=== PATIENT | male | born 1950 | race Caucasian/White ===

== ENCOUNTER 2020-05-20 13:50 | Emergency (ER) | payer MEDICARE, BC ==
--- NOTE | 2020-05-20 15:17 | EDM.PDOC ---
ED HPI GENERAL MEDICAL PROBLEM - General Chief Complaint: Cardiovascular Problem Stated Complaint: DEFIBRILLATOR ISSUES Time Seen by Provider: 05/20/20 14:25 Source of Information: Reports: Patient, RN Notes Reviewed History Limitations: Reports: No Limitations - History of Present Illness INITIAL COMMENTS - FREE TEXT/NARRATIVE: Patient is a 70-year-old male who presents to the ED for the evaluation of his defibrillator going off. Patient states he was on stage at [employer] yesterday around 11 AM, when he felt his pacemaker shocked him, he states after this he became slightly dizzy and lightheaded but he did not pass out. Patient notes that he has had shocks like this in the past. He states that he did get a call from his doctor, they were going to get a hold of [employer], and that that he was directed to come to the ER for evaluation. Patient is not complaining of any symptoms today, no chest pain, no shortness of breath. His pacemaker was interrogated at today's visit, he does have 4 months battery life remaining, so they wanted us to be aware of this. He had an episode of V. tach yesterday, that was treated with pacing attempts x2, which was unsuccessful and he was shocked with 35 J. He has had 8 nonsustained V. tach episodes most recent on 15 May 2020, 11 SVT episodes most recent on 20 May 2020, and apparently his device measures fluid levels, and states that he has been accumulating fluid since about March 31. 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 - Related Data Allergies Allergy/AdvReac Type Severity Reaction Status Date / Time spironolactone Allergy Rash Verified 05/20/20 15:40 Home Meds: Home Meds Eplerenone [Inspra] 25 mg PO DAILY 05/20/20 [History] Ethacrynic Acid 25 mg PO DAILY 05/20/20 [History] Lansoprazole [Prevacid] 30 mg PO DAILY 05/20/20 [History] Levothyroxine 75 mcg PO DAILY 05/20/20 [History] Losartan [Cozaar] 100 mg PO DAILY 05/20/20 [History] Potassium Chloride [Klor-Con M20] 20 meq PO DAILY 05/20/20 [History] Sildenafil [Revatio] 20 mg PO DAILY 05/20/20 [History] Tamsulosin [Flomax] 0.4 mg PO DAILY 05/20/20 [History] atorvaSTATin [Lipitor] 80 mg PO DAILY 05/20/20 [History] carvediloL [Carvedilol] 3.125 mg PO DAILY 05/20/20 [History] metOLazone [Metolazone] 2.5 mg PO DAILY 05/20/20 [History] Past Medical History Cardiovascular History: Reports: Arrhythmia, Heart Failure, High Cholesterol, Hypertension, [place] Respiratory History: Reports: Asthma, Pneumonia, Recurrent Gastrointestinal History: Reports: GERD Musculoskeletal History: Reports: Arthritis, Osteoarthritis Hematologic History: Reports: Anemia Oncologic (Cancer) History: Reports: Renal, Other (See Below) Other Oncologic History: right kidney cancer with ablation; throat cancer with chemo radiation and surgery - Past Surgical History Cardiovascular Surgical History: Reports: AICD Social & Family History - Tobacco Use Smoking Status *Q: Never Smoker - Caffeine Use Caffeine Use: Reports: Coffee, Soda - Recreational Drug Use Recreational Drug Use: No ED ROS GENERAL - Review of Systems Review Of Systems: Comprehensive ROS is negative, except as noted in HPI. ED EXAM, GENERAL - Physical Exam Exam: See Below Exam Limited By: No Limitations General Appearance: Alert, WD/WN, No Apparent Distress Respiratory/Chest: No Respiratory Distress, Lungs Clear, Normal Breath Sounds, No Accessory Muscle Use, Chest Non-Tender Cardiovascular: Normal Peripheral Pulses, Regular Rate, Rhythm, No Edema, No Murmur Peripheral Pulses: 3+: Radial (L), Radial (R) Extremities: Normal Inspection, Normal Capillary Refill Neurological: Alert, Oriented, Normal Cognition, No Motor/Sensory Deficits Psychiatric: Normal Affect, Normal Mood Skin Exam: Warm, Dry, Intact, Normal Color, No Rash EKG INTERPRETATION EKG Date: 05/20/20 Time: 15:46 Rhythm: Other (AV dual paced rhythm) Rate (Beats/Min): 60 Comparison: NA - No Prior EKG EKG Interpretation Comments: Atrial ventricular dual paced rhythm. No obvious signs of ST changes or ischem ia. Reviewed by myself and Dr. Taylor. Course - Vital Signs Last Recorded V/S: Last Vital Signs Temp 98.4 F 05/20/20 14:08 Pulse 63 05/20/20 14:08 Resp 20 05/20/20 14:08 BP 133/76 05/20/20 14:08 Pulse Ox 97 05/20/20 14:08 - Orders/Labs/Meds Orders: Active Orders 24 hr Category Date Time Status EKG Documentation Completion [RC] STAT Care 05/20/20 15:24 Ordered Labs: Laboratory Tests 05/20/20 05/20/20 05/20/20 Range/Units 15:11 15:11 15:11 WBC 5.70 (4.23-9.07) K/mm3 RBC 3.84 L (4.63-6.08) M/mm3 Hgb 11.6 L (13.7-17.5) gm/dl Hct 36.3 L (40.1-51.0) % MCV 94.5 H (79.0-92.2) fl MCH 30.2 (25.7-32.2) pg MCHC 32.0 L (32.2-35.5) g/dl RDW Std Deviation 44.8 H (35.1-43.9) fL Plt Count 132 L (163-337) K/mm3 MPV 8.4 L (9.4-12.3) fl Neut % (Auto) 69.1 H (34.0-67.9) % Lymph % (Auto) 18.1 L (21.8-53.1) % [place] % (Auto) 10.0 (5.3-12.2) % Eos % (Auto) 1.9 (0.8-7.0) Baso % (Auto) 0.7 (0.1-1.2) % Neut # (Auto) 3.94 (1.78-5.38) K/mm3 Lymph # (Auto) 1.03 L (1.32-3.57) K/mm3 [place] # (Auto) 0.57 (0.30-0.82) K/mm3 Eos # (Auto) 0.11 (0.04-0.54) K/mm3 Baso # (Auto) 0.04 (0.01-0.08) K/mm3 Sodium 144 (136-145) mEq/L Potassium 4.3 (3.5-5.1) mEq/L Chloride 109 H (98-107) mEq/L Carbon Dioxide 26 (21-32) mEq/L Anion Gap 13.3 (5-15) BUN 22 H (7-18) mg/dL Creatinine 1.1 (0.7-1.3) mg/dL Est Cr Clr Drug Dosing 70.62 mL/min Estimated GFR (MDRD) > 60 (>60) mL/min BUN/Creatinine Ratio 20.0 H (14-18) Glucose 102 (80-115) mg/dL Calcium 8.7 (8.5-10.1) mg/dL Magnesium 1.9 (1.8-2.4) mg/dl Total Bilirubin 0.6 (0.2-1.0) mg/dL AST 18 (15-37) U/L ALT 30 (16-63) U/L Alkaline Phosphatase 63 (46-116) U/L NT-Pro-B Natriuret Pep 1812 H (0-125) pg/mL Total Protein 6.4 (6.4-8.2) g/dl Albumin 3.4 (3.4-5.0) g/dl Globulin 3.0 gm/dL Albumin/Globulin Ratio 1.1 (1-2) - Re-Assessments/Exams Free Text/Narrative Re-Assessment/Exam: 05/20/20 15:25 Patient is a 70-year-old male who presents to the ED for the evaluation of his pacemaker going off yesterday. We did do an interrogation of his [employer] device, and have faxed a portion of this to Dr. Jamie Paul at [facility] as this the patient's police investigator. I was also in touch with Beryl Lora, LOG SORTER at [facility] in [place], and she has in their notes if the patient is having any more issues with his pacemaker where he does get shocked, he will need to have a more urgent evaluation by police investigator rather than holding it off. Nonetheless I will get baseline labs and EKG to check for electrolyte abnormalities. 05/20/20 16:23 Only lab abnormality noted is a elevated BNP of 1812. I have not had correspondence again with Dr. Paul, but the fax did apparently go through to his clinic. At this time I do not feel is appropriate for me to start changing some of his diuretics around. As the patient's LOG SORTER in [place] states he is not very medically compliant. I will have him call Dr. Paul tomorrow for further management and/or to get an appointment sooner rather than later. Patient's EKG did show an atrial ventricular dual paced rhythm, but no obvious signs of ischemia. This was reviewed with Dr. Taylor as well. Departure - Departure Time of Disposition: 16:25 Disposition: Home, Self-Care 01 Condition: Good Clinical Impression: Encounter for implantable defibrillator reprogramming or check Referrals: Narinder Norman MD [Primary Care Provider] - Forms: ED Department Discharge Additional Instructions: You were evaluated in the ER today regarding your defibrillator going off yesterday. Your defibrillator was interrogated, and the report was sent to Dr. Paul at [facility] in [place]. You also had some laboratory evaluation done today, and all of your electrolytes are within normal limits, you are not having any sort of bacterial infection. Your BNP which is a marker for heart failure is mildly elevated at 1812. No changes in your medication have been done today regarding your cardiac status. I highly recommend you follow-up with your police investigator sooner rather than later, so they can suggest change in your medication, and or for follow-up for further management. Of note your defibrillator battery is set to be depleted in around 4 months, again I recommend you follow-up with your police investigator for further management of your defibrillator. Please return to the ER at any time if your symptoms change or worsen. Sepsis Event Note (ED) - Evaluation Sepsis Screening Result: No Definite Risk - Focused Exam Vital Signs: Vital Signs Temp Pulse Resp BP Pulse Ox 05/20/20 14:08 98.4 F 63 20 133/76 97 - My Orders Last 24 Hours: My Active Orders 05/20/20 15:24 EKG Documentation Completion [RC] STAT - Assessment/Plan Last 24 Hours: My Active Orders 05/20/20 15:24 EKG Documentation Completion [RC] STAT
== END 2020-05-20 16:38 | disposition home or self-care (01) ==
LOC: JD.ED 13:50
DX: Z45.02 Encounter for adjustment and management of automatic implantable cardiac defibrillator (principal); I11.0 Hypertensive heart disease with heart failure; I50.9 Heart failure, unspecified; E78.00 Pure hypercholesterolemia, unspecified; K21.9 Gastro-esophageal reflux disease without esophagitis; M19.90 Unspecified osteoarthritis, unspecified site; I25.2 Old myocardial infarction; Z79.899 Other long term (current) drug therapy; Z88.8 Allergy status to other drugs, medicaments and biological substances
CPT/HCPCS: 36415; 80053; 83735; 83880; 85025; 93005; 99284-25

== ENCOUNTER 2020-07-23 17:15 | Emergency (ER) | payer MEDICARE, BC ==
[2020-07-23] MEDS ORDERED: Sodium Chloride 0.9% 1,000 ML IV ONE (18:06)
[2020-07-23] MEDS ORDERED: Sodium Chloride 0.9% 10 ML Syringe FLUSH PRN (18:06)
--- NOTE | 2020-07-23 18:16 | EDM.PDOC ---
ED HPI GENERAL MEDICAL PROBLEM - General Chief Complaint: Syncope Stated Complaint: SYNCOPE/HAS PACEMAKER Time Seen by Provider: 07/23/20 18:05 Source of Information: Reports: Patient, Old Records, RN Notes Reviewed History Limitations: Reports: No Limitations - History of Present Illness INITIAL COMMENTS - FREE TEXT/NARRATIVE: Patient is a 70-year-old male who presents to the ED for the evaluation of a syncopal episode. He does have a pacemaker/defibrillator implanted. He states that he became dizzy, so he sat down in a chair, and ended up passing out after he sat down. He did fall forward out of the chair onto the wooden floor and hit his right frontal forehead. He does not believe that his defibrillator went off, but he states he was out for about 45 seconds so he cannot really account for this. He was seen in this ER at the end of April, for his defibrillator going off with him feeling the shock. He states however he did not feel a shock today. The ambulance did come to check him out initially, but a friend brought him to the ER for further evaluation and management. Patient states that he takes a lot of medications, and he gets hypotensive at times, and states that he did take his medication later than he normally does. He also states that he did eat or drink much today, and his last meal was breakfast. He further denies any fevers or chills, cough/shortness of breath, nausea/vomiting/diarrhea. He is not complaining of any blurred vision or double vision. - Related Data Allergies Allergy/AdvReac Type Severity Reaction Status Date / Time spironolactone Allergy Severe Rash Verified 07/23/20 17:37 Home Meds: Home Meds Eplerenone [Inspra] 25 mg PO DAILY 05/20/20 [History] Ethacrynic Acid 25 mg PO DAILY 05/20/20 [History] Lansoprazole [Prevacid] 30 mg PO DAILY 05/20/20 [History] Levothyroxine 75 mcg PO DAILY 05/20/20 [History] Losartan [Cozaar] 100 mg PO DAILY 05/20/20 [History] Potassium Chloride [Klor-Con M20] 20 meq PO DAILY 05/20/20 [History] Sildenafil [Revatio] 20 mg PO ASDIRECTED 05/20/20 [History] Tamsulosin [Flomax] 0.4 mg PO DAILY 05/20/20 [History] atorvaSTATin [Lipitor] 80 mg PO DAILY 05/20/20 [History] carvediloL [Carvedilol] 3.125 mg PO DAILY 05/20/20 [History] metOLazone [Metolazone] 2.5 mg PO DAILY 05/20/20 [History] Allopurinol [Zyloprim] 100 mg PO DAILY 07/23/20 [History] Amiodarone [Cordarone] 200 mg PO DAILY 07/23/20 [History] Apixaban [Eliquis] 5 mg PO DAILY 07/23/20 [History] Aspirin [Aspirin EC] 81 mg PO DAILY 07/23/20 [History] Past Medical History Cardiovascular History: Reports: Arrhythmia, Heart Failure, High Cholesterol, Hypertension, [place], Pacemaker Respiratory History: Reports: Asthma, Pneumonia, Recurrent Gastrointestinal History: Reports: GERD Musculoskeletal History: Reports: Arthritis, Osteoarthritis Hematologic History: Reports: Anemia Oncologic (Cancer) History: Reports: Renal, Other (See Below) Other Oncologic History: right kidney cancer with ablation; throat cancer with chemo radiation and surgery - Past Surgical History Cardiovascular Surgical History: Reports: AICD Social & Family History - Tobacco Use Smoking Status *Q: Never Smoker - Caffeine Use Caffeine Use: Reports: Coffee - Recreational Drug Use Recreational Drug Use: No ED ROS GENERAL - Review of Systems Review Of Systems: Comprehensive ROS is negative, except as noted in HPI. - Physical Exam Exam: See Below Exam Limited By: No Limitations General Appearance: Alert, WD/WN, No Apparent Distress Eye Exam: Bilateral Eye: EOMI, Normal Inspection, PERRL Head Exam: Normocephalic, Facial Ecchymosis (right lateral forehead) Respiratory/Chest: No Respiratory Distress, Lungs Clear, Normal Breath Sounds, No Accessory Muscle Use, Chest Non-Tender Cardiovascular: Normal Peripheral Pulses, Regular Rate, Rhythm, No Edema, No Murmur Neuro Exam (Abbreviated): Alert, Oriented, Normal Cognition, No Motor/Sensory Deficits Extremities: Normal Inspection, Normal Capillary Refill Psychiatric: Normal Affect, Normal Mood Skin Exam: Warm, Dry, Intact, Normal Color, No Rash Course - Vital Signs Last Recorded V/S: Last Vital Signs Temp 97.0 F 07/23/20 17:46 Pulse 61 07/23/20 17:46 Resp 20 08/28/20 17:46 BP 123/74 07/23/20 17:46 Pulse Ox 98 07/23/20 17:46 - Orders/Labs/Meds Orders: Active Orders 24 hr Category Date Time Status Peripheral IV Care [RC] . DIRECTED Care 07/23/20 18:06 Active Head wo Cont [CT] Stat Exams 07/23/20 18:05 Taken Sodium Chloride 0.9% [Saline Flush] Med 07/23/20 18:06 Active 10 ml FLUSH ASDIRECTED PRN Peripheral IV Insertion Adult [OM.PC] Routine Oth 07/23/20 18:06 Ordered Medication Orders Sodium Chloride (Saline Flush) 10 ml FLUSH ASDIRECTED PRN PRN Reason: Keep Vein Open Last Admin: 07/23/20 18:58 Dose: 10 ml Documented by: DANI Labs: Laboratory Tests 07/23/20 07/23/20 Range/Units 18:50 18:50 WBC 7.01 (4.23-9.07) K/mm3 RBC 4.24 L (4.63-6.08) M/mm3 Hgb 12.4 L (13.7-17.5) gm/dl Hct 38.6 L (40.1-51.0) % MCV 91.0 D (79.0-92.2) fl MCH 29.2 (25.7-32.2) pg MCHC 32.1 L (32.2-35.5) g/dl RDW Std Deviation 44.9 H (35.1-43.9) fL Plt Count 139 L (163-337) K/mm3 MPV 8.8 L (9.4-12.3) fl Neut % (Auto) 78.4 H (34.0-67.9) % Lymph % (Auto) 11.0 L (21.8-53.1) % [place] % (Auto) 8.7 (5.3-12.2) % Eos % (Auto) 1.0 (0.8-7.0) Baso % (Auto) 0.6 (0.1-1.2) % Neut # (Auto) 5.50 H (1.78-5.38) K/mm3 Lymph # (Auto) 0.77 L (1.32-3.57) K/mm3 [place] # (Auto) 0.61 (0.30-0.82) K/mm3 Eos # (Auto) 0.07 (0.04-0.54) K/mm3 Baso # (Auto) 0.04 (0.01-0.08) K/mm3 Sodium 138 (136-145) mEq/L Potassium 3.7 (3.5-5.1) mEq/L Chloride 102 (98-107) mEq/L Carbon Dioxide 27 (21-32) mEq/L Anion Gap 12.7 (5-15) BUN 20 H (7-18) mg/dL Creatinine 1.2 (0.7-1.3) mg/dL Est Cr Clr Drug Dosing 64.73 mL/min Estimated GFR (MDRD) 60 (>60) mL/min BUN/Creatinine Ratio 16.7 (14-18) Glucose 98 (80-115) mg/dL Calcium 9.3 (8.5-10.1) mg/dL Magnesium 1.9 (1.8-2.4) mg/dl Total Bilirubin 0.9 (0.2-1.0) mg/dL AST 16 (15-37) U/L ALT 27 (16-63) U/L Alkaline Phosphatase 72 (46-116) U/L Total Protein 7.0 (6.4-8.2) g/dl Albumin 3.8 (3.4-5.0) g/dl Globulin 3.2 gm/dL Albumin/Globulin Ratio 1.2 (1-2) Meds: Medications Generic Name Dose Route Start Last Admin Trade Name Freq PRN Reason Stop Dose Admin Sodium Chloride 10 ml 07/23/20 18:06 07/23/20 18:58 Saline Flush FLUSH 10 ml ASDIRECTED PRN Administration Keep Vein Open Discontinued Medications Generic Name Dose Route Start Last Admin Trade Name Freq PRN Reason Stop Dose Admin Sodium Chloride 1,000 mls @ 999 mls/hr 07/23/20 18:06 07/23/20 18:58 Normal Saline IV 07/23/20 19:06 999 mls/hr ONETIME ONE Administration - Re-Assessments/Exams Free Text/Narrative Re-Assessment/Exam: 07/23/20 18:18 Patient presents to the ED for evaluation of a syncopal episode. This was witnessed and he did hit his head, and he does take Eliquis. Head CT will be performed to rule out bleed. He will get baseline labs, and IV fluids for initial management. I do somewhat agree with the gentleman, that is likely he did not have enough to eat or drink today, and is precipitated the passing out. Nonetheless we will interrogate the pacemaker to see if it went off or not. 07/23/20 18:[address] is negative for any sort of intracranial injury or skull fracture or bleeds. 07/23/20 19:43 Patient's laboratory evaluation shows no focal abnormalities. He is about 3[address] with his bag of fluids. We will have the nurse interrogate his pacemaker, and hopefully discharge him home with general recommendations. 07/23/20 20:29 The patient's pacemaker was interrogated, and this demonstrated an episode of fast V-tach with unsuccessful pacing. He did ultimately receive a 35J shock at 4:30pm, this was likely the cause of his syncopal episode. He will be directed to follow up with his charge poster for further management and evaluation. See [employer] report for further detail. Departure - Departure Time of Disposition: 20:11 Disposition: Home, Self-Care 01 Condition: Good Clinical Impression: Episode of syncope Qualifiers: Syncope type: unspecified Qualified Code(s): R55 - Syncope and collapse - Discharge Information *PRESCRIPTION DRUG MONITORING PROGRAM REVIEWED*: No *COPY OF PRESCRIPTION DRUG MONITORING REPORT IN PATIENT SHILOH: No Instructions: Syncope, [id number] Referrals: PCP,Not In Area [Primary Care Provider] - Forms: ED Department Discharge Additional Instructions: You were evaluated in the ER today for your syncopal episode. Your laboratory evaluation demonstrated no focal abnormalities, and your head CT was also negative for any sort of bleeds or injury. Your pacemaker was interrogated, and was found to be working, you did have an episode today of a fast V. tach, where your heart was beating too fast. Your pacemaker try to pace this, but failed so you did receive 135 J shock that put you back into normal rhythm, this was at about 4:30 this afternoon. It was made known again that your battery has only got about a 2-month lifespan, you should follow-up with a charge poster on Sunday for replacement of the battery, and just a general checkup, as you seem to be having more shocks. Please return to the ER at any time if your symptoms change or worsen. Sepsis Event Note (ED) - Evaluation Sepsis Screening Result: No Definite Risk - Focused Exam Vital Signs: Vital Signs Temp Pulse Resp BP Pulse Ox 07/23/20 17:46 97.0 F 61 20 123/74 98 - My Orders Last 24 Hours: My Active Orders 07/23/20 18:05 Head wo Cont [CT] Stat 07/23/20 18:06 Peripheral IV Care [RC] . DIRECTED Sodium Chloride 0.9% [Saline Flush] 10 ml FLUSH ASDIRECTED PRN Peripheral IV Insertion Adult [OM.PC] Routine - Assessment/Plan Last 24 Hours: My Active Orders 07/23/20 18:05 Head wo Cont [CT] Stat 07/23/20 18:06 Peripheral IV Care [RC] . DIRECTED Sodium Chloride 0.9% [Saline Flush] 10 ml FLUSH ASDIRECTED PRN Peripheral IV Insertion Adult [OM.PC] Routine
--- NOTE | 2020-07-24 09:36 | CT ---
Head CT Technique: Multiple axial sections through the brain were obtained. Intravenous contrast was not utilized. Findings: Ventricles along with basal cisterns and sulci over the convexities are mildly prominent. No evidence of intracranial hemorrhage. No midline shift or mass-effect is seen. Dense-appearing left middle cerebral artery is seen. Mild areas of diminished density are seen within the periventricular white matter compatible with small vessel ischemic demyelination change. No other abnormal parenchymal densities are seen. Atherosclerotic calcification is noted within the vertebral vessels and within the carotid siphon. Bone window settings were reviewed which shows no acute calvarial finding. Visualized paranasal sinuses shows nothing acute. Impression: 1. Hyperdense left middle cerebral artery. This most likely represents hemoconcentration from dehydration although can be seen with middle cerebral artery thrombosis. Given the patient's history of trauma with no symptoms or signs of stroke, this is then believed to represent change from dehydration. 2. Senescent change as noted above. 3. Nothing acute is appreciated. Diagnostic code #3 This report was dictated in MDT I agree with preliminary report from [facility], finalized on 07/23/20, 7:51 PM Central Daylight Time
== END 2020-07-23 20:41 | disposition home or self-care (01) ==
LOC: JD.ED 17:15
DX: R55 Syncope and collapse (principal); S00.83XA Contusion of other part of head, initial encounter; E78.00 Pure hypercholesterolemia, unspecified; I11.0 Hypertensive heart disease with heart failure; I50.9 Heart failure, unspecified; I25.2 Old myocardial infarction; J45.909 Unspecified asthma, uncomplicated; K21.9 Gastro-esophageal reflux disease without esophagitis; M19.90 Unspecified osteoarthritis, unspecified site; Z79.82 Long term (current) use of aspirin; Z79.01 Long term (current) use of anticoagulants; Z79.899 Other long term (current) drug therapy; Z88.8 Allergy status to other drugs, medicaments and biological substances; W07.XXXA Fall from chair, initial encounter
CPT/HCPCS: 36415; 70450; 80053; 83735; 85025; 96360; 99284; J7030; 99283

== ENCOUNTER 2025-05-22 13:21 | Emergency (ER) | payer MEDICARE, BC ==
[2025-05-22 14:10] LABS: BASOPHILS PERCENT AUTO 0.6 % (0.0-1.0); EOSINOPHILS ABSOLUTE AUTO 0.1 K/mm3 (0.0-0.4); EOSINOPHILS PERCENT AUTO 1.7 % (0.0-6.0); HEMATOCRIT 34.2 % (42.0-52.0); HEMOGLOBIN 10.8 gm/dl (14.0-18.0); IMMATURE GRAN ABSOLUTE AUTO 0.02 K/mm3 (0.00-0.05); IMMATURE GRAN PERCENT AUTO 0.3 % (0.0-0.4); LYMPHOCYTES ABSOLUTE AUTO 0.8 K/mm3 (1.0-4.8); LYMPHOCYTES PERCENT AUTO 12.8 % (24.0-44.0); MEAN CORPUSCULAR HEMOGLOBIN 30.3 pg (28.0-32.0); MEAN CORPUSCULAR HGB CONC 31.6 g/dl (32.0-36.0); MEAN CORPUSCULAR VOLUME 96.1 fl (83.0-99.0); MEAN PLATELET VOLUME 8.4 fl (9.4-12.4); MONOCYTES ABSOLUTE AUTO 0.4 K/mm3 (0.0-0.8); MONOCYTES PERCENT AUTO 6.5 % (0.0-8.0); NEUTROPHILS PERCENT AUTO 78.1 % (41.0-71.0); PLATELET COUNT,PLT 124 K/mm3 (150-400); RED BLOOD CELL COUNT 3.56 M/mm3 (4.52-5.90); WHITE BLOOD CELL COUNT,WBC 6.46 K/mm3 (3.9-11.3)
[2025-05-22 14:47] LABS: A/G RATIO 1.1 (1-2); ALBUMIN 3.7 g/dl (3.4-5.0); ANION GAP 12.2 (5-15); BILIRUBIN TOTAL 0.6 mg/dL (0.2-1.0); BUN/CREATININE RATIO 18.3 (14-18); CALCIUM 9.2 mg/dL (8.5-10.1); CREATININE 4.1 mg/dL (0.7-1.3); EST CRCL DRUG DOSING (CG) 21.97 mL/min; MAGNESIUM 2.9 mg/dL (1.8-2.4); POTASSIUM,K 4.2 mEq/L (3.5-5.1); PROTEIN TOTAL,TP 7.2 g/dl (6.4-8.2)
== END 2025-05-22 15:23 | disposition home or self-care (01) ==
LOC: JD.ED 13:21
DX: I95.9 Hypotension, unspecified (principal); I11.0 Hypertensive heart disease with heart failure; I50.9 Heart failure, unspecified; I25.2 Old myocardial infarction; M19.90 Unspecified osteoarthritis, unspecified site; Z88.8 Allergy status to other drugs, medicaments and biological substances; Z79.899 Other long term (current) drug therapy; Z79.890 Hormone replacement therapy; Z79.82 Long term (current) use of aspirin; Z79.01 Long term (current) use of anticoagulants
CPT/HCPCS: 36415; 71045; 71045-26; 80053; 82550; 83735; 83880; 84484; 85025; 93005; 99285

== ENCOUNTER 2025-08-04 20:01 | Emergency (ER) | payer MEDICARE, BC ==
[2025-08-04 20:57] LABS: BASOPHILS ABSOLUTE AUTO 0.1 K/mm3 (0.0-0.2); BASOPHILS PERCENT AUTO 0.7 % (0.0-1.0); EOSINOPHILS ABSOLUTE AUTO 0.2 K/mm3 (0.0-0.4); EOSINOPHILS PERCENT AUTO 2.0 % (0.0-6.0); IMMATURE GRAN ABSOLUTE AUTO 0.05 K/mm3 (0.00-0.05); IMMATURE GRAN PERCENT AUTO 0.7 % (0.0-0.4); LYMPHOCYTES ABSOLUTE AUTO 0.9 K/mm3 (1.0-4.8); LYMPHOCYTES PERCENT AUTO 12.2 % (24.0-44.0); MEAN PLATELET VOLUME 8.5 fl (9.4-12.4); MONOCYTES ABSOLUTE AUTO 0.8 K/mm3 (0.0-0.8); MONOCYTES PERCENT AUTO 10.0 % (0.0-8.0); NEUTROPHILS ABSOLUTE AUTO 5.7 K/mm3 (1.8-7.7); NEUTROPHILS PERCENT AUTO 74.4 % (41.0-71.0); NRBC ABSOLUTE 0.00 (0.00-0.02); NRBC PERCENT 0.0 % (0.0-0.2); PLATELET COUNT,PLT 107 K/mm3 (150-400); RED BLOOD CELL COUNT 3.81 M/mm3 (4.52-5.90); WHITE BLOOD CELL COUNT,WBC 7.63 K/mm3 (3.9-11.3)
[2025-08-04 21:22] LABS: A/G RATIO 1.0 (1-2); ALANINE AMINOTRANSFERASE,ALT 28.0 U/L (16-63); ASPARTATE AMNIOTRANSFERASE,AST 17.0 U/L (15-37); BILIRUBIN TOTAL 0.6 mg/dL (0.2-1.0); BLOOD UREA NITROGEN,BUN 88.0 mg/dL (7-18); CARBON DIOXIDE,CO2 32.0 mEq/L (21-32); CHLORIDE,CL 95.0 mEq/L (98-107); CREATININE 3.6 mg/dL (0.7-1.3); EST CRCL DRUG DOSING (CG) 20.04 mL/min; ESTIMATED GFR 17.0 mL/min (>60); GLUCOSE RANDOM 134.0 mg/dL (70-99); POTASSIUM,K 3.2 mEq/L (3.5-5.1); PROTEIN TOTAL,TP 7.3 g/dl (6.4-8.2); SODIUM,NA 137.0 mEq/L (136-145); TROPONIN I HIGH SENSITIVITY 38.0 pg/mL (<=76)
[2025-08-04] MEDS: Potassium Chloride 20 MEQ Tab.ER PO ONE (23:26)
[2025-08-05] MEDS: Potassium Chloride 20 MEQ Tab.ER PO ONE (00:35)
== END 2025-08-05 00:44 | disposition home or self-care (01) ==
LOC: JD.ED 20:01
DX: I47.20 Ventricular tachycardia, unspecified (principal); E87.6 Hypokalemia; I11.0 Hypertensive heart disease with heart failure; I50.9 Heart failure, unspecified; J45.909 Unspecified asthma, uncomplicated; K21.9 Gastro-esophageal reflux disease without esophagitis; E78.00 Pure hypercholesterolemia, unspecified; I25.2 Old myocardial infarction; Z88.8 Allergy status to other drugs, medicaments and biological substances; Z79.01 Long term (current) use of anticoagulants; Z79.899 Other long term (current) drug therapy; Z79.890 Hormone replacement therapy
CPT/HCPCS: 36415; 71045; 80053; 83735; 84484; 85025; 93005; 99285; A9270; 93010; 99283